=== PATIENT | female | born 1995 | race Caucasian/White ===

== ENCOUNTER 2019-10-07 12:02 | Emergency (ER) | payer MEDICAID ==
[~2019-10-07] VITALS: Ht 162.6 cm; Wt 63.5 kg
[2019-10-07] MEDS ORDERED: FLUORESCEIN SODIUM OPHTH 1 EA STRIP ONE (12:11)
[2019-10-07] MEDS ORDERED: IBUPROFEN 600 MG TABLET PO ONE ×2 (12:15→12:30)
--- NOTE | 2019-10-07 12:15 | NUR ---
BIB SELF 24 YEAR ROLD FEMALE C/O LEFT EYE IRRITATION, PAIN, REDNESS S/P TAKING CONTACT OUT LAST NIGHT. ALERT AND ORIENTED X4, BREATHING EVEN AND UNLABORED WITH NO DISTRESS NOTED. SKIN INTACT. WAITING TO BE SEEN BY MD.
[2019-10-07] MEDS ORDERED: TETRACAINE HCL 0.5% OPHTALMIC 15 ML BOTTLE OP ONE (12:30)
[2019-10-07] MEDS ORDERED: FLUORESCEIN SODIUM OPHTH 1 EA STRIP LEFTEYE ONE (12:30)
[2019-10-07 12:40] VITALS: BP 130/70
--- NOTE | 2019-10-07 12:40 | NUR ---
Patient discharged to home in stable condition. Written and verbal after care instructions given. Patient verbalizes understanding of instruction.
== END 2019-10-07 12:40 | disposition home or self-care (01) ==
LOC: ER 12:04
DX: S05.02XA Injury of conjunctiva and corneal abrasion without foreign body, left eye, initial encounter (principal); X58.XXXA Exposure to other specified factors, initial encounter; Y93.89 Activity, other specified; Y92.89 Other specified places as the place of occurrence of the external cause; Y99.8 Other external cause status

== ENCOUNTER 2020-06-15 10:48 | Emergency (ER) | payer SELFPAY ==
[~2020-06-15] VITALS: Ht 162.6 cm; Wt 63.5 kg
--- NOTE | 2020-06-15 10:56 | NUR ---
Patient came in to the er c/o lower back pain since friday 03/02 pain scale. On room air, breathing evenly and unlabored. Kept comfortable, will continue to monitor accordingly.
--- NOTE | 2020-06-15 10:57 | NUR ---
URINE SPECIMEN COLLECTED AND SENT TO LAB.
--- NOTE | 2020-06-15 10:59 | NUR ---
AT BEDSIDE FOR EVAL.
[2020-06-15] MEDS ORDERED: KETOROLAC TROMETHAMINE INJ 30 MG/ML VIAL IM ONE (11:30)
[2020-06-15] MEDS ORDERED: KETOROLAC TROMETHAMINE 15 MG/ML VIAL ONE (11:41)
--- NOTE | 2020-06-15 11:52 | NUR ---
TECH AT BEDSIDE FOR US.
[2020-06-15 13:22] LABS: BASOPHILS % (AUTO) 0.5 % (0.0-2.0); EOSINOPHILS % (AUTO) 0.2 % (0.0-6.0); HEMATOCRIT 39 % (33-45); HEMOGLOBIN 13.2 g/dL (11.5-14.8); LYMPHOCYTES % (AUTO) 17.2 % (20.0-44.0); MEAN CORPUSCULAR HGB CONC 34 g/dl (31.0-36.0); MEAN CORPUSCULAR VOLUME 90 fL (82-100); MONOCYTES # (AUTO) 0.4 /CMM (0.1-1.30); MONOCYTES % (AUTO) 6.4 % (2.0-12.0); NEUTROPHILS # (AUTO) 4.6 /CMM (1.8-8.9); NEUTROPHILS % (AUTO) 75.7 % (43.0-81.0); PLATELET COUNT (AUTO) 176 /CMM (150-450); RED BLOOD CELL COUNT(AUTO) 4.34 MIL/uL (4.0-5.2); WHITE BLOOD COUNT (AUTO) 6.1 K/uL (4.3-11.0)
[2020-06-15 13:34] LABS: CALCIUM, SERUM 9.1 mg/dL (8.5-10.1); CREATININE 0.8 mg/dL (0.6-1.3); POTASSIUM 3.8 mmol/L (3.5-5.1)
[2020-06-15 14:31] VITALS: BP 120/64
--- NOTE | 2020-06-15 14:31 | NUR ---
Patient discharged to home in stable condition. Written and verbal after care instructions given. Patient verbalizes understanding of instruction.
== END 2020-06-15 14:32 | disposition home or self-care (01) ==
LOC: ER 10:52
DX: O34.81 Maternal care for other abnormalities of pelvic organs, first trimester (principal); O26.891 Other specified pregnancy related conditions, first trimester; M54.16 Radiculopathy, lumbar region; N83.12 Corpus luteum cyst of left ovary; Z3A.01 Less than 8 weeks gestation of pregnancy
CPT/HCPCS: 36415; 76856-TC; 80048-TC; 84702-TC; 84703-TC; 85025-TC; J1885

== ENCOUNTER 2021-04-08 11:56 | Emergency (ER) | payer SELFPAY ==
[~2021-04-08] VITALS: Ht 160 cm; Wt 72.6 kg
[2021-04-08 12:02] VITALS: BP 103/65
--- NOTE | 2021-04-08 12:04 | NUR ---
PATIENT BIB SELF C/O LOWER BACK PAIN FOR 3 DAYS PT TOOK MOTRIN 6OOMG AROUND 6AM. NO RESPIRATORY DISTRESS NOTED. PATIENT ALERT AND ORIENTED X4. AWAITING MD RG
--- NOTE | 2021-04-08 12:10 | NUR ---
Dr Camacho at bedside
[2021-04-08] MEDS ORDERED: CYCLOBENZAPRINE 10 MG TABLET ONE (12:17)
[2021-04-08] MEDS ORDERED: KETOROLAC TROMETHAMINE INJ 30 MG/ML VIAL ONE ×2 (12:28→13:02)
[2021-04-08] MEDS ORDERED: CYCLOBENZAPRINE 10 MG TABLET PO ONE (12:30)
[2021-04-08] MEDS ORDERED: KETOROLAC TROMETHAMINE INJ 30 MG/ML VIAL IM ONE ×2 (12:30→13:00)
[2021-04-08] MEDS ORDERED: TRAM-351 PO (13:15)
[2021-04-08] MEDS ORDERED: CYCL5TAB PO (13:15)
[2021-04-08] MEDS ORDERED: IBUP-1957 PO (13:16)
[2021-04-08] MEDS ORDERED: TRAMADOL HCL 50 MG TABLET ONE (13:28)
[2021-04-08] MEDS ORDERED: TRAMADOL HCL 50 MG TABLET PO ONE (13:30)
--- NOTE | 2021-04-08 13:30 | NUR ---
Patient discharged to home in stable condition. Written and verbal after care instructions given. Patient verbalizes understanding of instruction.
== END 2021-04-08 13:32 | disposition home or self-care (01) ==
LOC: ER 12:02
DX: S39.012A Strain of muscle, fascia and tendon of lower back, initial encounter (principal); Z79.899 Other long term (current) drug therapy; X58.XXXA Exposure to other specified factors, initial encounter; Y93.89 Activity, other specified; Y92.89 Other specified places as the place of occurrence of the external cause; Y99.8 Other external cause status
CPT/HCPCS: 84703; 96372 ×2; 99284; J1885 ×2